=== PATIENT | female | born 1945 | race Two or more races ===

== ENCOUNTER 2022-11-28 20:54 | Emergency (ER) | payer MEDICARE, OTHER ==
[~2022-11-28] VITALS: Ht 154.9 cm; Wt 77.3 kg
[2022-11-28 21:42] VITALS: BP 154/69; PULSE 65; RESP 16; O2SAT 98
== END 2022-11-28 23:02 | disposition left against medical advice (07) ==
LOC: ER 20:54 → EDBD 20:54 → ER 23:02
DX: R21 Rash and other nonspecific skin eruption (principal); Z53.21 Procedure and treatment not carried out due to patient leaving prior to being seen by health care provider